=== PATIENT | female | born 1990 | race Two or more races ===

== ENCOUNTER 2020-09-10 12:33 | Emergency (ER) | payer BC ==
[~2020-09-10] VITALS: Ht 157.5 cm; Wt 104.5 kg
[2020-09-10 12:53] VITALS: BP 122/80
[2020-09-10] MEDS ORDERED: ALBU1.25 NEB (13:27)
[2020-09-10] MEDS ORDERED: ALBU2.5V8 IH (13:27)
[2020-09-10] MEDS ORDERED: PRED50TA PO (13:27)
--- NOTE | 2020-09-10 13:27 | PHYS DOC ---
Past Medical History Past Medical History: No Pertinent History, Asthma Past Surgical History: No Surgical History Smoking Status: Never Smoker Alcohol Use: Rarely General Adult EDM: Chief Complaint: ASTHMA HPI: HPI: Patient is a 30 year old female with a history of asthma presented to the ED today complaining of cough, shortness of breath, wheezing, symptoms began yesterday. Patient reports running out of her inhaler. Denies any fever. She states she gets tested for COVID-19 every week at work and she was tested on Wednesday and was negative. Review of Systems: Review of Systems: Constitutional: Denies fever or chills. [] Eyes: Denies change in visual acuity. [] HENT: Denies nasal congestion or sore throat. [] Respiratory: Reports cough, wheezing, shortness of breath Cardiovascular: Denies chest pain or edema. [] GI: Denies abdominal pain, nausea, vomiting, bloody stools or diarrhea. [] : Denies dysuria. [] Musculoskeletal: Denies back pain or joint pain. [] Integument: Denies rash. [] Neurologic: Denies headache, focal weakness or sensory changes. [] Psychiatric: Denies depression or anxiety. [] Heart Score: Risk Factors: Risk Factors: DM, Current or recent (<one month) smoker, HTN, HLP, family history of CAD, obesity. Risk Scores: Score 0 - 3: 2.5% MACE over next 6 weeks - Discharge Home Score 4 - 6: 20.3% MACE over next 6 weeks - Admit for Clinical Observation Score 7 - 10: 72.7% MACE over next 6 weeks - Early Invasive Strategies Allergies: Allergies: Allergies Coded Allergies Type Severity Reaction Last Updated Verified No Known Drug Allergies 09/10/20 No Physical Exam: PE: Constitutional: Well developed, well nourished, no acute distress, non-toxic appearance. [] HENT: Normocephalic, atraumatic, bilateral external ears normal, oropharynx moist, no oral exudates, nose normal. [] Eyes: PERRLA, EOMI, conjunctiva normal, no discharge. [] Neck: Normal range of motion, no tenderness, supple, no stridor. [] Cardiovascular:Heart rate regular rhythm, no murmur [] Lungs & Thorax: Bilateral breath sounds clear to auscultation [] Abdomen: Bowel sounds normal, soft, no tenderness, no masses, no pulsatile masses. [] Skin: Warm, dry, no erythema, no rash. [] Back: No tenderness, no CVA tenderness. [] Extremities: No tenderness, no cyanosis, no clubbing, ROM intact, no edema. [] Neurologic: Alert and oriented X 3, normal motor function, normal sensory function, no focal deficits noted. [] Psychologic: Affect normal, judgement normal, mood normal. [] Current Patient Data: Vital Signs: Vital Signs Date Time Temp Pulse Resp B/P (MAP) Pulse Ox O2 Delivery O2 Flow Rate FiO2 09/10/20 12:53 98.3 77 20 122/80 (94) 95 Room Air 98.3 EKG: EKG: [] Radiology/Procedures: Radiology/Procedures: [] Course & Med Decision Making: Course & Med Decision Making Pertinent Labs and Imaging studies reviewed. (See chart for details) This is a 30-year-old female patient presenting to the ED today with asthma exacerbation. She is out of her inhaler. Prescription was given. Prescription for prednisone also provided. O2 sats are 95% and above on room air. She is in no distress. Provided return precautions and discharged in stable condition. Dragon Disclaimer: [place] Disclaimer: This electronic medical record was generated, in whole or in part, using a voice recognition dictation system. Departure Departure Impression: Primary Impression: Asthma exacerbation Qualified Codes: J45.21 - Mild intermittent asthma with (acute) exacerbation Disposition: 01 CO HOME SELF CARE/HOMELESS Condition: STABLE Referrals: UNKNOWN PCP NAME (PCP) follow up with your doctor in 1-2 weeks Patient Instructions: Asthma, Adult, [id number] Additional Instructions: You are seen for asthma symptoms. Use the prescribed medications as ordered. Follow-up with with your doctor in 1 to 2 weeks Scripts Albuterol Sulfate (Proair Hfa) 8.5 Gm Hfa.aer.ad 2 PUFF IH PRN Q4-6HRS PRN for wheezing for 21 Days, #1 INHALER 0 Refills Prov: MUTUNGA,UBALDO PEDIATRIC OCCUPATIONAL THERAPIST 09/10/20 Albuterol Sulfate (ALBUTEROL SULFATE NEB SOLN) 1.25 Mg/3 Ml Vial.neb 1 VIAL NEB Q6HRS, #150 ML 1 Refill Prov: MUTUNGA,UBALDO PEDIATRIC OCCUPATIONAL THERAPIST 09/10/20 Prednisone (PREDNISONE) 50 Mg Tablet 1 TAB PO DAILY, #5 TAB Prov: UBALDO CHOWDHURY APRN 09/10/20 UBALDO CHOWDHURY APRN Sep 10, 2020 13:27
== END 2020-09-10 13:45 | disposition home or self-care (01) ==
LOC: ER 12:33
DX: J45.21 Mild intermittent asthma with (acute) exacerbation (principal); R06.02 Shortness of breath; R05 Cough; J45.909 Unspecified asthma, uncomplicated
CPT/HCPCS: 99283